=== PATIENT | female | born 1990 | race Caucasian/White ===

== ENCOUNTER 2017-05-28 20:16 | Inpatient (IN) | payer MEDICAID ==
[~2017-05-28] VITALS: Ht 157.5 cm; Wt 52.6 kg
[~2017-05-28 20:16] MED LIST: B1/B1TAB5 PO; PNV11TAB PO
[2017-05-28] MEDS ORDERED: NALOXONE 2 MG/2 ML SYRINGE ONE (20:33)
--- NOTE | 2017-05-28 20:35 | NUR ---
Pt brought into room unresponsive from possible OD of unk meds. Pt placed on monitor, IVs established, Dr Lao to bedside. Pt bradycardic on monitor, resp slow and shallow. Code blue called. Refer to code sheet for critical care interventions. Pt intubated to maintain airway, refer to RT charting for further vent settings. Pt on a propofol drip at 20 mcg into 20g R. AC. NG tube set to low intermittent suction. Warm blankets placed under and ontop of pt to increase body temp per delgado diamond located per Dr. Lao order.
[2017-05-28] MEDS ORDERED: PROPOFOL 200 MG/20 ML BOTTLE ONE (20:36)
[2017-05-28] MEDS ORDERED: PROPOFOL 100 ML ONE (20:39)
[2017-05-28] MEDS ORDERED: SUCCINYLCHOLINE CHLORIDE 200 MG/10 ML VIAL IV ONE (20:45)
[2017-05-28] MEDS ORDERED: ETOMIDATE 20 MG/10 ML VIAL IV ONE (20:45)
[2017-05-28] MEDS ORDERED: ATROPINE SULFATE 1 MG/10 ML DISP.SYRIN IV ONE (20:45)
[2017-05-28] MEDS ORDERED: NALOXONE HCL 0.4 MG/ML AMPUL IV ONE (20:45)
[2017-05-28 21:04] LABS: BASOPHILS % (AUTO) 0.2 % (0.0-2.0); EOSINOPHILS # (AUTO) 0.2 K/uL (0.0-0.7); EOSINOPHILS % (AUTO) 2.1 % (0.0-7.0); HEMATOCRIT 39.2 % (37-47); HEMOGLOBIN 12.7 G/DL (12.0-16.0); LYMPHOCYTES # (AUTO) 2.3 K/UL (0.8-4.8); LYMPHOCYTES % (AUTO) 31.2 % (20.5-51.5); MEAN CORPUSCULAR HEMOGLOBIN 29.3 UUG (27.0-31.0); MEAN CORPUSCULAR HGB CONC 32 g/dL (32.0-37.0); MEAN CORPUSCULAR VOLUME 90.6 FL (81.0-99.0); MONOCYTES # (AUTO) 0.4 K/UL (0.1-1.30); MONOCYTES % (AUTO) 5.9 % (0.0-11.0); NEUTROPHILS # (AUTO) 4.5 K/UL (1.8-8.9); NEUTROPHILS % (AUTO) 60.6 % (38.5-71.5); PLATELET COUNT (AUTO) 224 K/UL (150-450); RED BLOOD CELL COUNT(AUTO) 4.32 MIL/UL (4.2-5.4); WHITE BLOOD COUNT (AUTO) 7.4 K/UL (4.0-11.2)
[2017-05-28] MEDS ORDERED: IV D5/ 0.9% NACL 1,000 ML IV ONE (21:09)
[2017-05-28 21:13] LABS: CARBON DIOXIDE 27 mmol/L (21-32); CHLORIDE 107 mmol/L (98-107); CREATININE 0.7 mg/dL (0.6-1.3); GLUCOSE 92 mg/dL (74-106); POTASSIUM 4.6 mmol/L (3.5-5.1); UREA NITROGEN, BLOOD 12 mg/dL (7-18)
[2017-05-28] MEDS ORDERED: VECURONIUM BROMIDE 10 MG VIAL IV ONE (21:15)
[2017-05-28 21:21] LABS: ETHANOL < 3 MG/DL (0-0)
--- NOTE | 2017-05-28 21:37 | NUR ---
Pt to and from CT with RN. Flores inserted. Brother arrived at bedside.
[2017-05-28 21:38] LABS: ALANINE AMINOTRANSFERASE 36 U/L (14-59); ALKALINE PHOSPHATASE 52 U/L (50-136); ASPARTATE AMINOTRANSFERASE 36 U/L (15-37); BILIRUBIN,DIRECT 0.1 mg/dL (0.0-0.2); BILIRUBIN,TOTAL 0.3 mg/dL (0.2-1.0); TOTAL PROTEIN, SERUM 7.4 g/dL (6.4-8.2); VALPROIC ACID < 3 ug/mL (50-100)
[2017-05-28 21:41] LABS: ACETAMINOPHEN < 2.0 ug/mL (10-30)
[2017-05-28 22:02] LABS: ABG BASE EXCESS -1.3 mmol/L; ABG HCO3 21.4 mmol/L; ABG PCO2 30.1 mmHg (35.0-45.0); ABG PO2 122.7 mmHg (75.0-100.0); ABG SITE LEFT RADIAL; ABG TOTAL HEMOGLOBIN 12.8 G/dL (12.0-16.0); COHb 1.2 % (0.5-1.5); MetHb 0.2 % (0.0-1.5); O2Hb 97.5 % (94.0-97.0); VENT MODE VENT - A/C; VT, ABG 500 mL
--- NOTE | 2017-05-28 22:11 | NUR ---
notified of repeat rectal temp
[2017-05-28 22:12] LABS: *BILIRUBIN,URIN NEGATIVE (NEGATIVE); *BLOOD, URINE Trace-intact (NEGATIVE); *CLARITY,URINE CLEAR (CLEAR); *COLOR,URINE YELLOW (YELLOW); *KETONES,URINE 1+ (NEGATIVE); *PROTEIN,URINE NEGATIVE (NEGATIVE); *UROBILINOGEN,URINE 0.2 E.U./dl (NORMAL); LEUKOCYTE ESTERASE ,URINE NEGATIVE (NEGATIVE); NITRITE, URINE NEGATIVE (NEGATIVE); PH,URINE 7.5 (5.0-8.0); UGLUCOSE NEGATIVE (NEGATIVE)
[2017-05-28 22:13] LABS: *URINE HCG, QUAL NEGATIVE (NEGATIVE)
[2017-05-28 22:14] LABS: BACTERIA,URINE NONE SEEN /HPF (NONE SEEN); RBC,URINE 0-3 /HPF (0-3); SQUAMOUS EPITHELIAL CELL,UR FEW /HPF (NONE SEEN); WBC,URINE 0-3 /HPF (0-3)
[2017-05-28] MEDS ORDERED: PROPOFOL 100 ML IV ONE (22:27)
--- NOTE | 2017-05-28 22:36 | NUR ---
2027 Propofol drip started at 20 mcg 2039 increased propofol to 30 mcg 2049 increased propofol to 40 mcg 2099 increased propofol to 50 mcg 2109 increased propofol to [address] Lao.
[2017-05-28 22:42] LABS: *AMPHETAMINE, URINE POSITIVE (NEGATIVE); *BARBITURATE, URINE NEGATIVE (NEGATIVE); *CANNABINOID, URINE NEGATIVE (NEGATIVE); *COCCAINE, URINE NEGATIVE (NEGATIVE); *OPIATE, URINE POSITIVE (NEGATIVE); *PHENCYCLIDINE SCREEN,URINE NEGATIVE (NEGATIVE)
--- NOTE | 2017-05-28 22:44 | NUR ---
Report given to Blanca CORONEL and BERNA Seymour at bedside. I reliquish care of pt at this time
--- NOTE | 2017-05-28 23:06 | NUR ---
PT BROUGHT IN BY RESCUE, WITH O2 MASK IN PLACE, THEN SEDATED APPROX. 2024, AMBU BAG USED 100%, THEN INTUBATED BY DR IYER, WITH 7.0 ET/TUBE IN PLACE AT 22CM LIP LINE, WITH ANCHOR FAST IN PLACE AND SECURED, CURRENT VENT SETTINGS, V/O DR IYER A/C 14, VT 500ML, 40%, PEEP 5, PT IS SEDATED, PT WENT TO CT/ SCAN FOR HEAD AT APPROX. 2107, WITH RT ASSIST, AMBU BAG BEING USED FOR VENTILATION, DOING WELL, THEN BACK TO ER AT APPROX. 2127,, PT BACK ON GLEASON VENT, SPUTUM WAS DONE, AND THEN ABG WAS DONE, L/R, ABG RESULTS, 7.47., PCO2 30, PO2 122, SHOWN TO DR IYER, V/O ORDER TO DECREASE RATE TO A/C 12, , ALL ALARMS OK, AMBU BAG AT BEDSIDE, WAITING TO TRANSPORT TO CCU, WITH RT ASSIST. Jose SANCHEZ [employer] Addendum: 05/28/17 at 2311 by RAJNI SANCHEZ RT Amended: Links added.
[2017-05-28 23:30] VITALS: BP 110/73
[2017-05-29] VITALS (24 sets, daily range): BP systolic 93–126; BP diastolic 55–90
[2017-05-29] MEDS ORDERED: ONDANSETRON 4 MG/2 ML VIAL IV PRN
[2017-05-29] MEDS ORDERED: ACETAMINOPHEN 650 MG SUPP.RECT RC PRN
[2017-05-29] MEDS ORDERED: ENOXAPARIN SODIUM 40 MG/0.4 ML DISP.SYRIN SQ SCH
--- NOTE | 2017-05-29 | NUR ---
2330 Patient admitted, transferred to CCU-2 via ACLS protocol accompanied by Hawk YUEN, Hira YUEN, Luca RN. No significant events. Notified Dr. Reardon of patient's arrival. Admission orders received, implemented.
[2017-05-29] MEDS: PROPOFOL 100 ML IV PRN ×2 (00:14→05:25)
[2017-05-29] MEDS: IV D5 1/2 NS 1000 ML 1,000 ML IV PRN ×2 (00:23→15:41)
[2017-05-29] MEDS ORDERED: ENOXAPARIN SODIUM 40 MG/0.4 ML DISP.SYRIN SQ ONE (00:24)
[2017-05-29] MEDS: LORAZEPAM 2 MG/1 ML VIAL IV PRN ×4 (01:16→20:40)
[2017-05-29] MEDS ORDERED: LORAZEPAM 2 MG/1 ML VIAL ONE ×2 (01:22→05:10)
[2017-05-29] MEDS ORDERED: PROPOFOL 100 ML ONE (05:12)
[2017-05-29 05:21] LABS: THYROID STIMULATING HORMONE 0.439 mIU/mL (0.358-3.740)
--- NOTE | 2017-05-29 05:26 | NUR ---
Ativan and Propofol removed from Pyxis, administered as ordered. See eMAR
[2017-05-29 05:43] LABS: BILIRUBIN,TOTAL 0.2 mg/dL (0.2-1.0); CREATININE 0.6 mg/dL (0.6-1.3); MAGNESIUM 1.7 mg/dL (1.8-2.4); PHOSPHOROUS 2.7 mg/dL (2.5-4.9); POTASSIUM 3.5 mmol/L (3.5-5.1); TOTAL PROTEIN, SERUM 6.4 g/dL (6.4-8.2)
[2017-05-29 06:27] LABS: BASOPHILS % (AUTO) 0.1 % (0.0-2.0); EOSINOPHILS # (AUTO) 0.1 K/uL (0.0-0.7); HEMATOCRIT 37.1 % (37-47); HEMOGLOBIN 12.3 G/DL (12.0-16.0); LYMPHOCYTES # (AUTO) 2.1 K/UL (0.8-4.8); LYMPHOCYTES % (AUTO) 18.2 % (20.5-51.5); MEAN CORPUSCULAR HGB CONC 33 g/dL (32.0-37.0); MONOCYTES # (AUTO) 0.8 K/UL (0.1-1.30); NEUTROPHILS # (AUTO) 8.4 K/UL (1.8-8.9); NEUTROPHILS % (AUTO) 73.7 % (38.5-71.5); PLATELET COUNT (AUTO) 234 K/UL (150-450); RED BLOOD CELL COUNT(AUTO) 4.12 MIL/UL (4.2-5.4)
[2017-05-29 06:30] LABS: WHITE BLOOD COUNT (AUTO) 11.4 K/UL (4.0-11.2)
--- NOTE | 2017-05-29 07:11 | NUR ---
PT RECEIVED ON CMV WITH ETT SECURED AND AIRWAY PATENT. PT COMFORTABLE TOLERATING CURRENT VENT SETTINGS FINE. VENT ALARMS SET AND AUDIBLE. VENT PLUGGED IN RED OUTLET. WILL CONTINUE TO MONITOR.
--- NOTE | 2017-05-29 07:23 | NUR ---
Bedside report received from enriqueta Rios.Patient on ventilator A/C 12,Tv500, PEEP 5, and FIO2 of 40%. on propofol running at maximum dose of 50 mcg/kg/min. with sedation not achieved. Patient restless agitated and on 2 point wrist restrains. Patient able to lift upper body portion, not following commands
--- NOTE | 2017-05-29 07:30 | NUR ---
A call to Dr. Luis Reardon to notify inadequate sedation. awaiting call back.
--- NOTE | 2017-05-29 09:15 | NUR ---
A call back from Dr. Luis Reardon and orders for Rapid weaning followed by ABG and if ABG ok extubate patient; with no need to call him back for extubation orders.
--- NOTE | 2017-05-29 09:30 | NUR ---
Patient not happy with morphine for pain control and requesting to have Vicodin instead.
--- NOTE | 2017-05-29 09:35 | NUR ---
RT at bedside and rapid weaning initiated, propofol down to 30mcg/kg/min., as reported by RT. patient on SIMV 4 PS of 8 and at 0945: patient placed on CPAP, PS 8. patient restless and agitated unable to follow commands.
--- NOTE | 2017-05-29 10:05 | NUR ---
while awaiting for ABG. results patient with one large episode of vomit large traces of blood noted both in the vomit and in NG tube. Dr. Reardon notified.
[2017-05-29 10:08] LABS: ABG BASE EXCESS 2.2 mmol/L; ABG HCO3 25.5 mmol/L; ABG PCO2 34.9 mmHg (35.0-45.0); ABG PH 7.481 (7.350-7.450); ABG SITE LEFT RADIAL; ABG TOTAL HEMOGLOBIN 11.8 G/dL (12.0-16.0); COHb 0.5 % (0.5-1.5); MetHb 0.5 % (0.0-1.5); O2Hb 98.7 % (94.0-97.0); VENT MODE CPAP
--- NOTE | 2017-05-29 10:18 | NUR ---
PER MD JUDI HOLLOWAY ORDER. PT WEANED OFF VENT. 0935 PT WAS PLACED ON SIMV4 WITH PRESSURE SUPPORT OF 8. PT TOLERATED SIMV FINE MAINTAINING ADEQUATE MINUTE VENTILATION OF 8. PT COMFORTABLE. 0945 PT PLACED ON CPAP WITH PRESSURE SUPPORT OF 8. PT TOLERATED CPAP WELL WITHOUT DISTRESS OR ANY ACCESSORY MUSCLE USAGE. PT WITH ADEQUATE MINUTE VENTILATION. 0955 ABG DRAWN AND RESULTS NON CRITICAL. 1015 PT EXTUBATED WITH NO COMPLICATION. NO STRIDOR NOTED. PT COMFORTABLE OFF VENT. PT IS CURRENTLY ON ROOM AIR WITH SPO2 100%.
[2017-05-29] MEDS: MAGNESIUM SULFATE/D5W 100 ML IV SCH ×2 (11:11→12:15)
[2017-05-29] MEDS: MORPHINE SULFATE 2 MG/1 ML DISP.SYRIN IV PRN (11:31)
--- NOTE | 2017-05-29 11:51 | NUR ---
pt's and sister at bedside.
--- NOTE | 2017-05-29 13:00 | NUR ---
Dr. Luis jean-baptiste in the unit to examine patient. see orders.
--- NOTE | 2017-05-29 13:30 | NUR ---
Dr. Pruett in the unit Dr. Luis Reardon also in the unit and both Drs discussed patients condition. Orders from Dr. Pruett received see order history.
--- NOTE | 2017-05-29 14:55 | NUR ---
NG tube dcd. as ordered by Dr. Reardon.
[2017-05-29] MEDS: HYDROCODONE/APAP 10-325 MG TABLET PO PRN ×2 (15:36→21:52)
--- NOTE | 2017-05-29 19:30 | NUR ---
STK-MED ONCE Lovenox and Ativan removed from pyxis 05/29, administered as ordered. See eMAR
--- NOTE | 2017-05-29 19:31 | NUR ---
Received patient in stable condition, sleeping in bed. NSR, hemodynamically stable. Room air, SpO2 and RR WNL. Flores cath in place, patent. DVT pumps on. Call light within reach. SBAR report received. Will continue plan of care.
[2017-05-29] MEDS: ENOXAPARIN SODIUM 40 MG/0.4 ML DISP.SYRIN SQ SCH (21:51)
[2017-05-30] VITALS (21 sets, daily range): BP systolic 104–171; BP diastolic 57–88
[2017-05-30] MEDS: HYDROCODONE/APAP 10-325 MG TABLET PO PRN ×3 (04:10→23:21)
--- NOTE | 2017-05-30 04:22 | NUR ---
Patient states generalized pain with history of opioid use/dependency. Asking for [place]. Per notes, MD is aware and medication has been given as ordered. See eMAR
[2017-05-30] MEDS: IV D5 1/2 NS 1000 ML 1,000 ML IV PRN ×2 (04:35→20:35)
[2017-05-30 05:10] LABS: BASOPHILS % (AUTO) 0.6 % (0.0-2.0); EOSINOPHILS # (AUTO) 0.1 K/uL (0.0-0.7); EOSINOPHILS % (AUTO) 0.8 % (0.0-7.0); HEMATOCRIT 35.8 % (37-47); HEMOGLOBIN 11.9 G/DL (12.0-16.0); LYMPHOCYTES # (AUTO) 1.6 K/UL (0.8-4.8); LYMPHOCYTES % (AUTO) 20.9 % (20.5-51.5); MEAN CORPUSCULAR HEMOGLOBIN 29.9 UUG (27.0-31.0); MEAN CORPUSCULAR HGB CONC 33 g/dL (32.0-37.0); MEAN CORPUSCULAR VOLUME 89.9 FL (81.0-99.0); MONOCYTES # (AUTO) 0.4 K/UL (0.1-1.30); MONOCYTES % (AUTO) 5.5 % (0.0-11.0); NEUTROPHILS # (AUTO) 5.7 K/UL (1.8-8.9); NEUTROPHILS % (AUTO) 72.2 % (38.5-71.5); PLATELET COUNT (AUTO) 248 K/UL (150-450); RED BLOOD CELL COUNT(AUTO) 3.98 MIL/UL (4.2-5.4); WHITE BLOOD COUNT (AUTO) 7.8 K/UL (4.0-11.2)
[2017-05-30 05:15] LABS: BILIRUBIN,TOTAL 0.5 mg/dL (0.2-1.0); CREATININE 0.6 mg/dL (0.6-1.3); MAGNESIUM 1.8 mg/dL (1.8-2.4); POTASSIUM 3.3 mmol/L (3.5-5.1); TOTAL PROTEIN, SERUM 6.7 g/dL (6.4-8.2)
--- NOTE | 2017-05-30 07:30 | NUR ---
Patient transported to Surgery unit for EGD.
--- NOTE | 2017-05-30 07:30 | NUR ---
RECIEVED CONDITION REPORT FROM ALOK CORONEL. PT TAKEN DOWN TO GI LAB VIA GURNEY ACCOMPANIED BY OR AND RECOVERY ROOM NURSE4. PT IS NPO. PRE-OP CHECKLIST DONE. NO APPARENT DISTRESS NOTED.
--- NOTE | 2017-05-30 09:20 | NUR ---
RECIEVED PT FROM RECOVERY ROOM VIA JIM. S/P EGD. PT IS AWAKE AND ALERT AND ORIENTEDX3. APPEARS VERY ANXIOUS AND REQUESTING FOR ANXIETY MEDICINE. SR ON THE MONITOR. IVF INSFUSING WELL ON THE LEFT AC.
[2017-05-30] MEDS: LORAZEPAM 2 MG/1 ML VIAL IV PRN ×2 (09:53→17:50)
[2017-05-30] MEDS ORDERED: OMEPRAZOLE 40 MG PO SCH (10:00)
--- NOTE | 2017-05-30 10:00 | NUR ---
MEDICATED WITH ATIVAN 2MG SLOW IVP ORDERED. PT FEELS HUNGRY AND ATE WELL WITH HER SANDWCH. AT THE BEDSIDE.
[2017-05-30] MEDS: PANTOPRAZOLE SODIUM 40 MG TABLET.DR PO SCH (10:31)
[2017-05-30] MEDS ORDERED: ALPRAZOLAM 0.5 MG TABLET PO STA (11:53)
[2017-05-30] MEDS: SUCRALFATE 1 G/10 ML LIQUID UDC PO SCH ×3 (12:28→20:37)
--- NOTE | 2017-05-30 13:00 | NUR ---
SEEN AND EXAMINED BY DR HOLLOWAY WITH NEW ORDERS. PT SLEEPING MOST OF THE TIME. PT IS EATING LUNCH WITH GOOD APPETITE.
[2017-05-30] MEDS ORDERED: PROPOFOL 200 MG/20 ML BOTTLE IV ONE (15:05)
[2017-05-30] MEDS ORDERED: LIDOCAINE HCL 1% 20 ML VIAL MC ONE (15:05)
[2017-05-30] MEDS ORDERED: POTASSIUM CHLORIDE 20 MEQ TAB.PRT.SR PO ONE (15:30)
[2017-05-30] MEDS ORDERED: POTASSIUM CHLORIDE 50 ML IV SCH (16:15)
--- NOTE | 2017-05-30 18:30 | NUR ---
IVF INFUSING WELL NO APPARENT DISTRESS NOTED.
--- NOTE | 2017-05-30 20:00 | NUR ---
RECEIVED PT RESTING QUITELY. ON RM AIR W/ O2 SAT OF 98%. IVF D51/2NS @ 75CC/HR ON LAC. AFEBRILE, BP STABLE. NOT IN ANY DISTRESS.
[2017-05-30] MEDS: ENOXAPARIN SODIUM 40 MG/0.4 ML DISP.SYRIN SQ SCH (20:39)
--- NOTE | 2017-05-30 23:21 | NUR ---
MEDICATED W/ ROMINA 1 TAB FOR GENERALIZED PAIN.
[2017-05-31] VITALS (14 sets, daily range): BP systolic 94–134; BP diastolic 51–83
[2017-05-31] MEDS: MORPHINE SULFATE 2 MG/1 ML DISP.SYRIN IV PRN ×2 (04:09→10:26)
--- NOTE | 2017-05-31 04:10 | NUR ---
MEDICATED W/ MORPHINE SULFATE 2MG IVP FOR SEVERE PAIN, V/S STABLE.
--- NOTE | 2017-05-31 04:30 | NUR ---
PT REFUSED BED BATH, WANT TO SLEEP. NOT IN ANY DISTRESS.
[2017-05-31 05:10] LABS: CARBON DIOXIDE 27 mmol/L (21-32); CHLORIDE 107 mmol/L (98-107); CREATININE 0.5 mg/dL (0.6-1.3); GLUCOSE 117 mg/dL (74-106); MAGNESIUM 1.6 mg/dL (1.8-2.4); POTASSIUM 3.4 mmol/L (3.5-5.1); UREA NITROGEN, BLOOD 8 mg/dL (7-18)
[2017-05-31] MEDS: LORAZEPAM 2 MG/1 ML VIAL IV PRN ×3 (06:43→17:26)
[2017-05-31] MEDS: SUCRALFATE 1 G/10 ML LIQUID UDC PO SCH ×3 (06:43→16:51)
--- NOTE | 2017-05-31 07:30 | NUR ---
RECIEVED PT LYING COMFORTABLY IN BED SOUND ASLEEP. AROUSABLE TO NAME. APPEARS ANXIOUS AND SOON WAKING UP, C/O OF PAIN. HR SR NO ECTOPY. AFEBRILE.
--- NOTE | 2017-05-31 08:30 | NUR ---
PT ATE GOOD BREAKFAST, TOLERATING WELL. MEDICATED WITH HER NORCO 10/325 PER PT'S REQUEST. FALL BACK TO SLEEP. NO APPARENT RESPIRATORY DISTRESS NOTED.
[2017-05-31] MEDS: HYDROCODONE/APAP 10-325 MG TABLET PO PRN ×2 (08:40→14:48)
[2017-05-31] MEDS: PANTOPRAZOLE SODIUM 40 MG TABLET.DR PO SCH (08:40)
[2017-05-31] MEDS: IV D5 1/2 NS 1000 ML 1,000 ML IV PRN (10:28)
--- NOTE | 2017-05-31 10:30 | NUR ---
PT AWAKENED AND WANTED TO HAVE ANOTHER PAIN OR ANXIETY MEDICATION FOR THE PAIN OF HER BOTH HANDS. MEDICATED WITH MORPHINE 2MG SLOW IVP ORDERED.
[2017-05-31] MEDS ORDERED: POTASSIUM CHLORIDE 20 MEQ TAB.PRT.SR PO ONE (11:00)
[2017-05-31] MEDS ORDERED: MAGNESIUM OXIDE 400 MG TABLET PO ONE (11:00)
--- NOTE | 2017-05-31 12:17 | NUR ---
patient requested for norco but not due yet. medicated with ativan for generalized discomfort Addendum: 05/31/17 at 1233 by MELVIN HAHN RN Amended: Links added.
--- NOTE | 2017-05-31 17:00 | NUR ---
SEEN AND EXAMINED BY DR TELLES WITH DISCHARGE AND PRESCRIPTION ORDER. DISCHARGE INSTRUCTION AND EXIT CARE DONE. PHARMACIST CAME TO EDUCATE ABOUT HOME MEDICATIONS WITH GOOD UNDERSTANDING.
--- NOTE | 2017-05-31 18:45 | NUR ---
DISCHARGED VIA W/C ACCOMPANIED BY AND GRANDFATHER. CONDITION IS STABLE.
[2017-05-31] MEDS ORDERED: HYDR-3326 PO (18:55)
[2017-05-31] MEDS ORDERED: PANT40TA2 PO (18:55)
[2017-05-31] MEDS ORDERED: SUCR1ORA PO (18:55)
[2017-05-31] MEDS ORDERED: ALPR0.5T PO (18:55)
== END 2017-05-31 18:45 | disposition home or self-care (01) | DRG 812 ==
LOC: ER 20:22 → CCU 23:17
PROVIDERS: ADMIT Nurse Practitioner Acute Care; ATTEND Nurse Practitioner Acute Care
PROC: 5A1935Z Respiratory Ventilation, Less than 24 Consecutive Hours (ICD-10-PCS; principal; 2017-05-28)
PROC: 0BH17EZ Insertion of Endotracheal Airway into Trachea, Via Natural or Artificial Opening (ICD-10-PCS; principal; 2017-05-28)
PROC: 0D9670Z Drainage of Stomach with Drainage Device, Via Natural or Artificial Opening (ICD-10-PCS; principal; 2017-05-28)
PROC: 0DB68ZX Excision of Stomach, Via Natural or Artificial Opening Endoscopic, Diagnostic (ICD-10-PCS; 2017-05-30)
DX: T41.291A Poisoning by other general anesthetics, accidental (unintentional), initial encounter (principal); J96.00 Acute respiratory failure, unspecified whether with hypoxia or hypercapnia; G92 Toxic encephalopathy; K25.4 Chronic or unspecified gastric ulcer with hemorrhage; D50.0 Iron deficiency anemia secondary to blood loss (chronic); F13.20 Sedative, hypnotic or anxiolytic dependence, uncomplicated; F15.20 Other stimulant dependence, uncomplicated; F10.21 Alcohol dependence, in remission; E83.42 Hypomagnesemia; F11.23 Opioid dependence with withdrawal; T40.1X1A Poisoning by heroin, accidental (unintentional), initial encounter; Y92.89 Other specified places as the place of occurrence of the external cause; F32.9 Major depressive disorder, single episode, unspecified; K44.9 Diaphragmatic hernia without obstruction or gangrene; E87.6 Hypokalemia; F17.210 Nicotine dependence, cigarettes, uncomplicated
CPT/HCPCS: 36415; 36600; 43235; 70450; 71010; 72125; 74000; 80164; 80307; 83605; 83690; 83735; 84100; 84443; 84703; 85025; 85730; 87040; 87070; 93005; 93307; 94002; A4217; A4663; G0480; G0480-TC; J0330; J1650; J2060; J2270; J2310; J3475; J3490